=== PATIENT | male | born 1995 | race Caucasian/White ===

== ENCOUNTER 2017-05-03 08:51 | Inpatient (IN) | payer BC ==
[~2017-05-03] VITALS: Ht 170.2 cm; Wt 52.0 kg
[2017-05-03] VITALS (9 sets, daily range): BP systolic 97–141; BP diastolic 49–81
[~2017-05-03 08:51] MED LIST: AMOXICILLIN500 MG PO
[2017-05-03 09:22] LABS: HEMATOCRIT 41.5 % (39.0-50.0); HEMOGLOBIN 14.4 g/dl (14.0-18.0); IMMATURE GRANULOCYTES 0.2 % (0.0-1.0); MEAN CELL VOLUME 86.8 fL CALC (80.0-100.0); MEAN CORPUSCULAR HGB 30.1 pG CALC (26.0-32.0); MEAN CORPUSCULAR HGB CONC 34.7 g/L CALC (32.0-36.0); NEUT# 8.02 thou/uL (1.82-7.42); RED BLOOD COUNT 4.78 mill/uL (4.70-6.10); RED CELL DISTRI WIDTH 12.3 % (11.5-15.5)
[2017-05-03 09:33] LABS: ALKALINE PHOSPHATASE 52 u/l (38-126); ANION GAP 17 (6-22 (CALC)); BUN 14 mg/dL (9-20); BUN/CREATININE RATIO 19 (12-20 (CALC)); CALCIUM 9.7 mg/dL (8.4-10.2); CARBON DIOXIDE 23 mmol/l (22-30); CHLORIDE 106 mmol/l (95-108); CREATININE 0.7 mg/dL (0.7-1.3); GFR > 60 ML/MIN (>=60 (CALC)); GFR FOR AFR.AMER. > 60 ML/MIN (>=60 (CALC)); GLUCOSE 84 mg/dL (75-110); POTASSIUM 4.1 mmol/l (3.5-5.1); SGOT/AST 23 u/l (17-59); SGPT/ALT 29 u/l (21-72); SODIUM 141 mmol/l (137-146); TOTAL PROTEIN 8.1 g/dL (6.3-8.2)
[2017-05-03 09:45] LABS: MYOGLOBIN 25 ng/mL (0 - 121)
[2017-05-03 09:46] LABS: BILIRUBIN, TOTAL 0.5 mg/dL (0.0-1.4)
[2017-05-04] VITALS (11 sets, daily range): BP systolic 96–136; BP diastolic 53–81
[2017-05-04 04:47] LABS: HEMATOCRIT 50.4 % (39.0-50.0); IMMATURE GRANULOCYTES 0.3 % (0.0-1.0); MEAN CELL VOLUME 89.4 fL CALC (80.0-100.0); MEAN CORPUSCULAR HGB 30.1 pG CALC (26.0-32.0); MEAN CORPUSCULAR HGB CONC 33.7 g/L CALC (32.0-36.0); NEUT# 7.44 thou/uL (1.82-7.42); RED BLOOD COUNT 5.64 mill/uL (4.70-6.10); RED CELL DISTRI WIDTH 12.3 % (11.5-15.5)
[2017-05-04 05:08] LABS: ANION GAP 22 (6-22 (CALC)); BUN 17 mg/dL (9-20); BUN/CREATININE RATIO 19 (12-20 (CALC)); CALCIUM 10.2 mg/dL (8.4-10.2); CARBON DIOXIDE 25 mmol/l (22-30); CHLORIDE 99 mmol/l (95-108); CREATININE 0.9 mg/dL (0.7-1.3); GFR > 60 ML/MIN (>=60 (CALC)); GFR FOR AFR.AMER. > 60 ML/MIN (>=60 (CALC)); GLUCOSE 80 mg/dL (75-110); POTASSIUM 4.1 mmol/l (3.5-5.1); SODIUM 142 mmol/l (137-146)
== END 2017-05-04 20:25 | disposition short-term general hospital (02) | DRG 201 ==
LOC: ED 08:51 → ED-I 09:22 → ED 09:22 → ED-I 10:16 → ED 11:01 → ICU 11:02
PROVIDERS: Emergency Medicine; ADMIT Internal Medicine; ATTEND Internal Medicine
PROC: 0W9930Z Drainage of Right Pleural Cavity with Drainage Device, Percutaneous Approach (ICD-10-PCS; principal; 2017-05-03)
DX: J93.83 Other pneumothorax (principal)